=== PATIENT | female | born 1960 | race Caucasian/White ===

== ENCOUNTER → 2016-12-21 | Outpatient (CLI) | payer BC | LOC: RAD 01:02 | DX: Z12.31 Encounter for screening mammogram for malignant neoplasm of breast (principal) ==

== ENCOUNTER → 2016-12-25 | Outpatient (CLI) | payer BC | LOC: ULTRA 04:57 | DX: N63 Unspecified lump in breast (principal); N60.01 Solitary cyst of right breast; N60.02 Solitary cyst of left breast ==

== ENCOUNTER → 2018-01-06 | Outpatient (CLI) | payer BC, OTHER | LOC: RAD 01-03 13:03 | DX: Z12.31 Encounter for screening mammogram for malignant neoplasm of breast (principal) ==

== ENCOUNTER → 2019-01-09 | Outpatient (CLI) | payer BC, OTHER | LOC: RAD 03:15 | DX: Z12.31 Encounter for screening mammogram for malignant neoplasm of breast (principal) ==

== ENCOUNTER → 2020-01-22 | Outpatient (CLI) | payer BC, OTHER | LOC: RAD 09:27 | DX: Z12.31 Encounter for screening mammogram for malignant neoplasm of breast (principal) ==

== ENCOUNTER → 2021-01-30 | Outpatient (CLI) | payer BC, OTHER | LOC: BC 10:03 | DX: Z12.31 Encounter for screening mammogram for malignant neoplasm of breast (principal) ==